=== PATIENT | male | born 1955 | race African-American/Black ===

== ENCOUNTER 2022-06-01 03:47 | Emergency (ER) | payer OTHER | END 2022-06-01 04:58 | disposition home or self-care (01) | LOC: JD.ED 03:47 | DX: R07.89 Other chest pain (principal); I10 Essential (primary) hypertension; Z86.73 Personal history of transient ischemic attack (TIA), and cerebral infarction without residual deficits | CPT/HCPCS: 93005; 93010; 99283; 99285 ==

== ENCOUNTER 2023-01-02 15:45 | Emergency (ER) | payer OTHER ==
[2023-01-02] MEDS ORDERED: Naproxen 500 MG Tab PO ONE (16:48)
[2023-01-02] MEDS ORDERED: Metoclopramide 10 MG Tab PO ONE (16:48)
[2023-01-02] MEDS ORDERED: diphenhydrAMINE 50 MG Cap PO ONE (16:48)
[2023-01-02 18:22] LABS: CORONAVIRUS COVID-19 NAA NEGATIVE (NEGATIVE)
== END 2023-01-02 18:12 | disposition home or self-care (01) ==
LOC: JD.ED 15:45
DX: R51.9 Headache, unspecified (principal); I10 Essential (primary) hypertension; Z86.73 Personal history of transient ischemic attack (TIA), and cerebral infarction without residual deficits; Z72.0 Tobacco use; Z20.822 Contact with and (suspected) exposure to COVID-19
CPT/HCPCS: 0241U; 70450; 99284; A9270; Q0163; 99283

== ENCOUNTER 2025-08-16 10:34 | Emergency (ER) | payer OTHER ==
[2025-08-16] MEDS ORDERED: Sodium Chloride 0.9% 10 ML Syringe FLUSH PRN (11:20)
[2025-08-16] MEDS: Ketorolac 30 MG/ML SDV IVPUSH ONE (11:31)
[2025-08-16 11:34] LABS: BASOPHILS ABSOLUTE AUTO 0.1 K/mm3 (0.0-0.2); BASOPHILS PERCENT AUTO 1.1 % (0.0-1.0); EOSINOPHILS ABSOLUTE AUTO 0.1 K/mm3 (0.0-0.4); EOSINOPHILS PERCENT AUTO 2.3 % (0.0-6.0); IMMATURE GRAN ABSOLUTE AUTO 0.02 K/mm3 (0.00-0.05); IMMATURE GRAN PERCENT AUTO 0.4 % (0.0-0.4); LYMPHOCYTES ABSOLUTE AUTO 2.4 K/mm3 (1.0-4.8); LYMPHOCYTES PERCENT AUTO 43.0 % (24.0-44.0); MEAN PLATELET VOLUME 11.1 fl (9.4-12.4); MONOCYTES ABSOLUTE AUTO 0.5 K/mm3 (0.0-0.8); MONOCYTES PERCENT AUTO 8.0 % (0.0-8.0); NEUTROPHILS ABSOLUTE AUTO 2.5 K/mm3 (1.8-7.7); NEUTROPHILS PERCENT AUTO 45.2 % (41.0-71.0); NRBC ABSOLUTE 0.00 (0.00-0.02); NRBC PERCENT 0.0 % (0.0-0.2); PLATELET COUNT,PLT 109 K/mm3 (150-400); RED BLOOD CELL COUNT 5.57 M/mm3 (4.52-5.90); WHITE BLOOD CELL COUNT,WBC 5.60 K/mm3 (3.9-11.3)
[2025-08-16 11:54] LABS: A/G RATIO 1.2 (1-2); ALANINE AMINOTRANSFERASE,ALT 30 U/L (16-63); ASPARTATE AMNIOTRANSFERASE,AST 18 U/L (15-37); BILIRUBIN TOTAL 0.4 mg/dL (0.2-1.0); BLOOD UREA NITROGEN,BUN 9 mg/dL (7-18); CARBON DIOXIDE,CO2 26 mEq/L (21-32); CHLORIDE,CL 109 mEq/L (98-107); CREATININE 1.2 mg/dL (0.7-1.3); ESTIMATED GFR 66 mL/min (>60); GLUCOSE RANDOM 99 mg/dL (70-99); POTASSIUM,K 3.7 mEq/L (3.5-5.1); PROTEIN TOTAL,TP 7.3 g/dl (6.4-8.2); SODIUM,NA 144 mEq/L (136-145); TROPONIN I HIGH SENSITIVITY 7 pg/mL (<=76)
== END 2025-08-16 12:27 | disposition home or self-care (01) ==
LOC: JD.ED 10:34
DX: R07.9 Chest pain, unspecified (principal); M25.512 Pain in left shoulder; I10 Essential (primary) hypertension; E78.00 Pure hypercholesterolemia, unspecified; F17.200 Nicotine dependence, unspecified, uncomplicated; Z86.73 Personal history of transient ischemic attack (TIA), and cerebral infarction without residual deficits; Z79.899 Other long term (current) drug therapy
CPT/HCPCS: 36415; 71046; 80053; 84484; 85025; 85379; 93005; 96374; 99285; A9270; J1885; 93010; 99283